=== PATIENT | male | born 1955 | race Caucasian/White ===

== ENCOUNTER 2017-12-11 09:40 | Day surgery (SDC) | payer OTHER ==
--- NOTE | 2017-12-06 20:04 | HP ---
CC: Dr. Cool; Dr. Ya ADMITTING HISTORY AND PHYSICAL: DATE OF ADMISSION: 12/11/17 ADMITTING DIAGNOSES: 1. Microscopic hematuria. 2. Bladder lesion. 3. Bladder calculi. PLANNED PROCEDURES: 1. Transurethral resection of bladder lesion. 2. Left stent insertion. 3. Fragmentation and removal of bladder calculi. SURGEON: Dr. Ya. HISTORY OF PRESENT ILLNESS: Mauri Das is a 62-year-old gentleman with a history of bladder ca lculi. He had recently undergone cystoscopy in my office, which revealed a 2 cm area above the left orifice with raised hyperemic mucosa. In addition, there are multiple calculi adherent to the bladde r mucosa in the vicinity of this. He had similar findings a couple of years ago, at which time biops ies had revealed benign tissue with no evidence of malignancy. Because the area now appears larger a nd a little bit more irregular in appearance, he is now being brought in for transurethral resection of bladder lesion and left stent insertion and removal of the bladder calculi. PAST MEDICAL HISTORY: Significant for: 1. High cholesterol. 2. History of renal calculi. MEDICATIONS ON ADMISSION: Crestor 5 mg a day. ALLERGIES: No known drug allergies. REVIEW OF SYSTEMS: He is otherwise in excellent health. He denies any chest pain or shortness of br eath. PHYSICAL EXAMINATION GENERAL: Reveals a pleasant healthy appearing middle-aged gentleman. VITAL SIGNS: Blood pressure is 120/80, pulse 58 per minute, oxygen saturation 98% on room air. LUNGS: Clear bilaterally. CARDIOVASCULAR: Regular rate and rhythm. S1, S2. ABDOMEN: Soft without masses. IMPRESSION: A 62-year-old gentleman with bladder lesion and bladder calculi. PLAN: Planned procedures are transurethral resection of bladder lesion, left stent insertion, and fr agmentation and removal of bladder calculi. [id number]/[facility] #: [id number]
[~2017-12-11 09:40] MED LIST: Buffered Lidocaine 0.9% SYRIN* 5 ML/SYR SYRINGE INTRADERM ONE
[2017-12-11] MEDS ORDERED: cefTRIAXone(*) 2 GM ADDV.VIAL IVPB ONE (09:46)
[2017-12-11] MEDS ORDERED: Buffered Lidocaine 0.9% SYRIN* 5 ML/SYR SYRINGE ONE (09:46)
[2017-12-11] MEDS ORDERED: fentaNYL* 50 MCG/ML 2 ML VIAL (100 MCG VIAL) ONE (11:46)
[2017-12-11] MEDS ORDERED: Propofol* 10 MG/ML 20 ML BTL IV PUSH ONE (11:46)
[2017-12-11] MEDS ORDERED: Acetaminophen TAB* 325 MG PO PRN (12:16)
[2017-12-11] MEDS ORDERED: Ondansetron INJ* 2 MG/ML VIAL IV PRN (12:16)
[2017-12-11] MEDS ORDERED: Naloxone* 0.4 MG/ML 1 ML VIAL IV PRN (12:16)
[2017-12-11] MEDS ORDERED: oxyCODONE/Acetamin 5/325 MG* TAB PO PRN (12:16)
[2017-12-11] MEDS ORDERED: DiMENhydriNATE IV* 50 MG/ML VIAL IV PUSH PRN (12:16)
[2017-12-11] MEDS ORDERED: fentaNYL* 50 MCG/ML 2 ML VIAL (100 MCG VIAL) IV PRN (12:16)
[2017-12-11] MEDS ORDERED: Lidocaine 2% PF * 5 ML VIAL ONE (12:23)
[2017-12-11] MEDS ORDERED: Furosemide IV* 10 MG/ML 2 ML VIAL (20 MG) ONE (12:32)
--- NOTE | 2017-12-11 13:16 | RAD ---
INDICATION: Left ureteral stent placement. COMPARISON: Comparison is made with a prior study from May 16, 2016. TECHNIQUE: 5 seconds of intermittent fluoroscopic guidance were provided and 8 spot films of the abdomen were centered on the left side. FINDINGS: There is partial opacification of the left renal collecting system. Subsequently there is placement of a double-J stent catheter on the left side which demonstrates normal course. IMPRESSION: INTRAOPERATIVE CONTROL FILMS. CPT II Codes: 6045F
[2017-12-11] MEDS ORDERED: Tamsulosin CAP* 0.4 MG ONE (13:24)
[2017-12-11] MEDS ORDERED: Phenazopyridine TAB* 100 MG PO ONE (13:30)
[2017-12-11 14:33] VITALS: BP 142/88
--- NOTE | 2017-12-12 10:45 | OP ---
CC: Dr. Huey Cool * DATE OF OPERATION: 12/11/17 - [facility] DATE OF : 55 SURGEON: Jaylon Ya MD ANESTHESIOLOGIST: Dr. Chapman ANESTHESIA: General. PRE-OP DIAGNOSES: 1. Hematuria. 2. Bladder lesion. 3. Bladder calculi. POST-OP DIAGNOSES: 1. Hematuria. 2. Bladder lesion. 3. Bladder calculi. OPERATIVE PROCEDURE: 1. Cystoscopy, transurethral resection and fulguration of bladder lesion (3 to 4 cm). 2. Fragmentation and removal of bladder calculi. 3. Left retrograde and left stent insertion. INDICATIONS: Mauri Das is a 62-year-old gentleman who recently underwent office cystoscopy with the above-mentioned findings noted. COMPLICATIONS: None. STENT USED: 6-Yi stent, left ureter. OPERATIVE FINDINGS: 1. Mild prostatic enlargement. 2. Multiple small bladder calculi (most of them adherent to bladder mucosa, left lateral wall.) 3. Two areas of thickened, raised, irregular hyperemic mucosa above left orifice (appearance suspicious for superficial transitional cell carcinoma). BLOOD LOSS: Minimal. POSTOPERATIVE CONDITION: Stable. DESCRIPTION OF PROCEDURE: After induction of general anesthesia, the patient was placed in dorsal lithotomy position. Sequential compression devices were in place and functioning. Initial cystoscopy revealed a normal-appearing urethra and mild- to-moderate enlargement predominantly of the median lobe of the prostate. The bladder was examined and the findings described above were noted. A left retrograde pyelogram revealed no evidence of filling defects or obstruction and a 6-Yi left stent was placed. This was done because the lesion was located directly above the expected location of the intramural portion of the left distal ureter. Next, attention was directed to the bladder calculi. These were fragmented and irrigated out without difficulty. Next, attention was directed to the bladder lesion. Internal Auditor biopsies were obtained and sent for histopathology. Next, the resectoscope was introduced and all of the visible lesion was resected and the base was cauterized. At the end of the procedure, there was no remaining lesion and hemostasis appeared satisfactory. There was no evidence of bladder perforation. A 20-Yi Funez was placed for bladder drainage. The patient tolerated the procedure satisfactorily and was transferred back to the recovery area in stable condition. [id number]/[facility] #: [id number] [facility]
== END 2017-12-11 15:32 | disposition home or self-care (01) ==
LOC: OR 09:40
PROVIDERS: ATTEND Urology
DX: C67.2 Malignant neoplasm of lateral wall of bladder (principal); N21.0 Calculus in bladder; E78.00 Pure hypercholesterolemia, unspecified
CPT/HCPCS: 74420; 82365; 88300; 88305; A9270-GY; C1876; J0696; J1940; J2704; J3010

== ENCOUNTER 2023-11-30 10:47 | Inpatient (IN) ==
[2023-11-30] MEDS: Cefepime 2 GM in Dextrose 2 GM/50 ML BAG IV ONE (12:39)
[2023-11-30 13:07] LABS: ABS Eosinophils 0.2 10^3/uL (0.0-0.5); ABS Lymphocytes 1.3 10^3/uL (1.0-4.8); ABS Monocytes 0.5 10^3/uL (0.0-1.1); ABS Neutrophils 4.4 10^3/uL (1.5-7.6); ABS Nucleated RBC 0.01 10^3/ul; Eosinophil % 2.7 %; Hemoglobin 15.4 g/dL (13.2-16.3); Lymphocyte % 20.7 %; Mean Corpuscular Hgb Conc 34.9 g/dL (31-36); Mean Corpuscular Volume 91.6 fL (80-97); Mean Platelet Volume 7.4 fL (7.5-11.2); Nucleated Red Blood Cells % 0.1 %/100WBC (0.0-0.8); Platelet Count 150 10^3/uL (150-450); White Blood Count 6.3 10^3/uL (3.6-10.2)
[2023-11-30 13:25] LABS: Albumin 4.1 g/dL (3.2-5.2); Albumin/Globulin Ratio 1.3 (1-3); C Reactive Protein 19.57 mg/L (<8.01); Calcium 8.8 mg/dL (8.6-10.3); Creatinine, Serum 1.07 mg/dL (0.67-1.17); Globulin 3.1 g/dL (2-4); Potassium 4.1 mmol/L (3.5-5.0); Total Bilirubin 1.1 mg/dL (0.2-1.0); Total Protein 7.2 g/dL (6.4-8.9); eGFR CKD-EPI 75.6 (>60)
[2023-11-30] MEDS: Vancomycin 1,250 MG in NS 0.9% 250 ml 250 ML IVPB ONE (14:09)
[2023-11-30] MEDS: Piperacillin/Tazobac 3.375 BAG 3.375 GM/100 ML BAG IV ONE (14:15)
[2023-11-30] MEDS ORDERED: Ondansetron 4 mg VIAL 2 MG/ML 2 ml VIAL IV PRN (16:36)
[2023-11-30] MEDS ORDERED: Zosyn per Pharmacy NOTE FOLLOW UP SCH (21:04)
[2023-11-30] MEDS: ZOSYN 3.375 GM x ONE DOSE over 30 miuntes IV (21:41)
[2023-11-30] MEDS: CMCS:Pravastatin 20 mg TAB (NF) PO ONE (21:49)
[2023-12-01] MEDS: ZOSYN 3.375 GM Q8H per EXTENDED INFUSION IV SCH (01:51)
[2023-12-01 07:01] LABS: ABS Eosinophils 0.2 10^3/uL (0.0-0.5); ABS Lymphocytes 1.5 10^3/uL (1.0-4.8); ABS Monocytes 0.5 10^3/uL (0.0-1.1); ABS Neutrophils 3.5 10^3/uL (1.5-7.6); ABS Nucleated RBC 0.03 10^3/ul; Eosinophil % 4.1 %; Hematocrit 41.4 % (38-53); Hemoglobin 14.2 g/dL (13.2-16.3); Lymphocyte % 26.3 %; Mean Corpuscular Hemoglobin 31.6 pg (27-33); Mean Corpuscular Hgb Conc 34.4 g/dL (31-36); Mean Corpuscular Volume 91.9 fL (80-97); Mean Platelet Volume 7.6 fL (7.5-11.2); Nucleated Red Blood Cells % 0.6 %/100WBC (0.0-0.8); Platelet Count 151 10^3/uL (150-450); White Blood Count 5.7 10^3/uL (3.6-10.2)
[2023-12-01 07:20] LABS: Potassium 4.4 mmol/L (3.5-5.0)
[2023-12-01 07:21] LABS: Calcium 8.2 mg/dL (8.6-10.3); Creatinine, Serum 1.24 mg/dL (0.67-1.17); eGFR CKD-EPI 63.3 (>60)
[2023-12-01] MEDS ORDERED: PRAVASTATIN 10 MG PO SCH (21:00)
[2023-12-01] MEDS: CMCS:Pravastatin 20 mg TAB (NF) PO SCH (21:04)
[2023-12-02 08:39] LABS: ABS Eosinophils 0.2 10^3/uL (0.0-0.5); ABS Lymphocytes 1.7 10^3/uL (1.0-4.8); ABS Monocytes 0.4 10^3/uL (0.0-1.1); ABS Neutrophils 3.2 10^3/uL (1.5-7.6); Eosinophil % 4.3 %; Hematocrit 43.5 % (38-53); Hemoglobin 15.2 g/dL (13.2-16.3); Lymphocyte % 29.6 %; Mean Corpuscular Hemoglobin 31.8 pg (27-33); Mean Corpuscular Hgb Conc 34.9 g/dL (31-36); Mean Platelet Volume 7.3 fL (7.5-11.2); Nucleated Red Blood Cells % 0.1 %/100WBC (0.0-0.8); Platelet Count 159 10^3/uL (150-450); Red Blood Count 4.78 10^6/uL (4.06-5.63); Red Cell Distribution Width 13.1 % (12-17); White Blood Count 5.6 10^3/uL (3.6-10.2)
[2023-12-02 09:03] LABS: Calcium 8.7 mg/dL (8.6-10.3); Creatinine, Serum 1.13 mg/dL (0.67-1.17); Potassium 4.2 mmol/L (3.5-5.0); eGFR CKD-EPI 70.8 (>60)
[2023-12-02] MEDS: Gadoteridol (CONTRAST) 279.3 MG/ML 10 ML IV ONE (09:22)
[2023-12-02] MEDS: Influenza vaccine *QUAD* *2023-24* 0.5 ML SYRINGE IM ONE (11:48)
[2023-12-02 14:14] VITALS: BP 113/100
== END 2023-12-02 15:56 | disposition home or self-care (01) | DRG 605 ==
LOC: ED 10:47 → EDHOLD 16:27 → SUATTDRO 16:27 → MED 18:37
PROVIDERS: ADMIT Internal Medicine; ATTEND Student in an Organized Health Care Education/Training Program